=== PATIENT | female | born 1950 | race Caucasian/White ===

== ENCOUNTER 2023-07-18 06:21 | Inpatient (IN) | payer MEDICARE, SELFPAY ==
--- NOTE | 2023-05-31 10:46 | CM ---
Addendum entered by Erika Young 07/13/23 10:00:
Spoke again with patient. She confirmed information below. She continues to state that she will need VN services. SHe will have support from her daughter and friend but no one will stay with her.
Addendum entered by Erika Young 07/13/23 09:13:
Surgery date has been changed to 07/18/23.
Original Note:
Patient is scheduled for an elective L TKR on 07/04/23. Spoke with patient prior to surgery via telephone. Introduced role of Orthopedic Navigator. Patient reports that she lives alone in a one floor apartment. Building is elevator accessible with no
steps to enter. She currently functions independently. She has a cane, rolling walker, rollator (which she occasionally uses for longer distances) and a shower seat. She has had VN services. PCP is Hang Horowitz.
Discussed orthopedic program and post surgical plans. Reviewed anticipated length of stay and that goal is for her to return home at discharge. Also reviewed outpatient PT. Patient is in agreement with tentative plan and states that her daughter
lives close by and will stay with her initially. She will need VN services.
Patient will complete online education.
Plan: Orthopedic Navigator will remain available to assist with the care of patient and will reassess discharge needs after surgery.
[2023-06-15 13:13] VITALS: BMI 35.3
[2023-06-15 14:01] LABS: Hematocrit 40.3 % (37.0-47.0); Hemoglobin 14.2 g/dL (12.0-16.0); Mean Corp Hgb Conc. 35.2 g/dL (33.0-37.0); Mean Corpuscular Hgb 29.8 pg (27.0-31.0); Mean Corpuscular Volume 84.7 fL (81.0-99.0); Mean Platelet Volume 8.5 fL (7.4-10.4); Platelet Count 261 10^3/uL (130-400); Red Blood Cell Count 4.76 10^6/uL (4.20-5.40); White Blood Cell Count 5.8 10^3/uL (4.8-10.8)
[2023-06-15 14:04] LABS: ALT (SGPT) 29 U/L (0-35); AST (SGOT) 35 U/L (14-36); Albumin 4.2 g/dl (3.5-5.0); Alkaline Phosphatase 85 U/L (38-126); Blood Urea Nitrogen 11 mg/dl (7-17); Calcium 9.5 mg/dl (8.4-10.2); Carbon Dioxide 30 mmol/L (22-30); Chloride 96 mmol/L (98-107); Estimated Creatinine Clearance 59 ml/min; Glucose 97 mg/dl (70-99); Potassium 3.7 mmol/L (3.5-5.1); Sodium 136 mmol/L (135-145); Total Bilirubin 0.9 mg/dl (0.2-1.3); Total Protein 7.8 g/dl (6.3-8.2); eGFR > 60.00
[2023-06-15 15:35] VITALS: BMI 35.3
[2023-06-16 09:24] LABS: Glycohemoglobin (HgbA1c) 5.8 % (4.0-5.6)
--- NOTE | 2023-07-14 11:56 | HPS.HSE ---
Family Physician
-
Family Physician: Hang Horowitz
Chief Complaint
-
�Advanced osteoarthritis of the left knee.
�
History of Present Illness
73 yo female w/end-stage arthritis of the left knee that has failed conservative
treatment measures. She has attempted multiple modalities including
intra-articular injection, weight loss, self-directed exercise,
physical therapy, activity modification, ice and heat. Imaging
performed revealed severe [id number] joint space narrowing with
periarticular spur formation. She was determined to be in need of a
left total knee arthroplasty. She currently denies chest pain,
shortness of breath, fever, chills, nausea, vomiting, or diarrhea.
�
Medical History
Past Medical History
Past Medical History: Reports Other (see below)
Additional Past Medical History:
1. Osteoarthritis.
2. Obesity, BMI 35.3.
3. SVT.
4. Hypertension.
5. Hyperlipidemia.
6. Abnormal EKG.
7. Gastric and colonic polyps with history of iron-deficiency
anemia.
8. History of MRSA.
9. Irritable bowel constipation.
10. Obstructive sleep apnea, CPAP.
11. COPD.
12. Asthma, moderate-persistent.
13. Gastroesophageal reflux disease.
14. Insomnia.
15. Spinal stenosis with degenerative disc disease.
16. Depression, anxiety.
�
Past Surgical History: Reports Other (see below)
Additional Past Surgical History:
Spine surgery x10, right total knee arthroplasty with subsequent revision x2, cervical fusion,
bladder sling, hip surgery, carpal tunnel release, cataract,
hysterectomy, nasal polypectomy, septoplasty, nasal.
�
Social History
Tobacco: Former Smoker
Alcohol: Daily (2)
Family History
Family History: Not pertinent
Allergies / Home Medications
Allergies reflects when Allergies were last updated in [email or web address].
Home Medications with original date entered in [email or web address]
Allergy/Medication List:
HOME MEDICATIONS:�
1. Clonazepam 0.5 mg b.i.d.
2. Escitalopram 10 mg daily.
3. Nexium 40 mg daily.
4. Zetia 10 mg at bedtime.
5. Ellipta one inhalation daily.
6. Levocetirizine 5 mg daily.
7. Amitiza 8 mcg b.i.d.
8. Singulair 10 mg daily.
9. Simvastatin 40 mg at bedtime.
10. Tizanidine 4 mg at bedtime.
11. Potassium chloride 10 mEq daily.
�
ALLERGY:� To adhesive, barium, Cipro, coffee, corn, mold, ragweed,
sulfa, antibiotics.
Review of Systems
-
A 12 point ROS was completed and negative except as noted: Yes
Physical Exam
Physical Exam
General: Well Developed and Well Nourished
HEENT: NormoCephalic and Anicteric
Respiratory: Clear
Cardiac: S1/S2 and Regular Rhythm
GI: Soft, Non Tender and Normal Bowel Sounds
Skin: Warm and Dry
Neuro: AO x 3, Cranial Nerves Intact and Other (Left knee, range of motion 12-110, medial and lateral joint line tenderness with patellar grind, small effusion, slight instability to varus stress.)
Laboratory Results
-
06/15/23 12:57
06/15/23 12:57
Laboratory Results
Total Bilirubin 0.9 mg/dl (0.2-1.3) 06/15/23 12:57
AST 35 U/L (14-36) 06/15/23 12:57
ALT 29 U/L (0-35) 06/15/23 12:57
Alkaline Phosphatase 85 U/L (38-126) 06/15/23 12:57
Impression/Plan
-
DIAGNOSTIC STUDIES:� 06/15/2023
�
EKG:� Normal sinus rhythm, possible inferior infarct.
(Prior Nuclear test and evaluation included.)
�
LABORATORY RESULTS:� White blood count 5.8, hemoglobin 14.2,
platelets 261. Sodium 136, potassium 3.7, BUN 11, creatinine 0.9,
AST 35, ALT 29.
�
Hemoglobin A1c 5.8.
�
MRSA screen negative.
�
CLEARANCES:�
1. Primary medical, Dr. Hang Horowitz, , cleared.
2. Dental waived.
�
IMPRESSION/PLAN:�
1. Advanced end-stage arthritis of the left knee scheduled for left
total knee arthroplasty with Dr. Roderick Herring. Benefits and
risks have been discussed with the patient. These risks are
understood, and she wishes to proceed.
2. Deep vein thrombosis prophylaxis, aspirin with advised venous
compression device.
�
CONTACT INFORMATION:�
1. Patient phone, .
2. Postoperative contact, daughter, Ev, .
[2023-07-18] VITALS (22 sets, daily range): BP systolic 110–197; BP diastolic 51–169; PULSE 90; O2SAT 98; BMI 35.3
[2023-07-18] MEDS: TYLENOL 650 MG PO ×3 (10:02→20:03)
[2023-07-18] MEDS: NORMOSOL-R 1000 IV ×3 (10:03→16:07)
[2023-07-18] MEDS: VANCOCIN 300 MG IV (10:13)
[2023-07-18] MEDS: VANCOCIN 300 ML IV (10:13)
[2023-07-18] MEDS: BACTROBAN NASAL 1 GRAM NASAL (10:22)
[2023-07-18] MEDS: DILAUDID 0.5 MG IV ×3 (14:19→14:55)
[2023-07-18] MEDS: ROXICODONE 5 MG PO (14:39)
--- NOTE | 2023-07-18 18:30 | PTCARENOTE ---
pt admitted to room 2102 from the PACU at 1820. pt alert and awake. hoarse voice quality. denies discomfort. Assessment as documented. O2 2L NC maintained-pox 95%. Left knee w/michael wrap over surgical dressing intact. no drainage noted. ice
pack in use. B/L LE neurovascular check WNL.
+ pedal pulses noted. oriented to room call ortiz, bed controls and plan of care with verbalized understanding. telemetry placed and reading SR 70's. pt currently eating dinner-due to void. will observe.
[2023-07-18] MEDS: LEXAPRO 10 MG PO (18:43)
[2023-07-18] MEDS: ANCEF 5 IV (18:43)
[2023-07-18] MEDS: LIPITOR 20 MG PO (18:43)
[2023-07-18] MEDS: SINGULAIR 10 MG PO (18:43)
[2023-07-18] MEDS: DECADRON 4 MG PO (20:02)
[2023-07-18] MEDS: BACTROBAN 2% OINTMENT 1 APPLIC NASAL (20:02)
[2023-07-18] MEDS: NEURONTIN 300 MG PO (20:02)
[2023-07-18] MEDS: KLONOPIN 0.5 MG PO (20:02)
[2023-07-18] MEDS: ULTRAM 50 MG PO (20:03)
[2023-07-18] MEDS: SENOKOT PO (20:13)
[2023-07-18] MEDS: ProAIR HFA INHALER 2 PUFF INH (20:26)
[2023-07-18] MEDS: ZETIA 10 MG PO (22:14)
[2023-07-18] MEDS: TORADOL 15 MG IV (22:14)
[2023-07-18] MEDS: PROTONIX 40 MG PO (22:14)
[2023-07-18] MEDS: ZANAFLEX 4 MG PO (22:14)
[2023-07-18] MEDS: ROXICODONE 10 MG PO (22:17)
[2023-07-19] MEDS: TYLENOL PO (01:05)
[2023-07-19] MEDS: TYLENOL 650 MG PO ×3 (03:02→11:51)
[2023-07-19] MEDS: ANCEF 5 IV (03:03)
[2023-07-19] MEDS: FLUSH (NSS) 2 FLUSH IV (03:03)
[2023-07-19 03:28] VITALS: BP 100/59
[2023-07-19 07:37] VITALS: BP 125/64
[2023-07-19] MEDS: BACTROBAN 2% OINTMENT 1 APPLIC NASAL (08:04)
[2023-07-19] MEDS: KLONOPIN PO (08:11)
[2023-07-19] MEDS: ProAIR HFA INHALER 2 PUFF INH (08:11)
[2023-07-19] MEDS: VISBIOME 1 CAP PO (08:13)
[2023-07-19] MEDS: SINGULAIR 10 MG PO (08:13)
[2023-07-19] MEDS: SENOKOT 17.1999999999999993 MG PO (08:13)
[2023-07-19] MEDS: LEXAPRO 10 MG PO (08:13)
[2023-07-19] MEDS: NEURONTIN 300 MG PO (08:13)
[2023-07-19] MEDS: ULTRAM 50 MG PO (08:14)
[2023-07-19] MEDS: ZYRTEC 10 MG PO (08:14)
[2023-07-19] MEDS: DECADRON 4 MG PO (08:14)
[2023-07-19] MEDS: MOBIC 15 MG PO (08:14)
--- NOTE | 2023-07-19 08:54 | CM ---
Addendum entered by Erika Young 07/19/23 11:40:
Patient did well in therapy. She has no concerns about going home and will update her family.
Original Note:
Reviewed chart and held rounds with PT, OT and nursing. Patient admitted as planned for elective L TKR. Met with patient at bedside. Confirmed information previously obtained for assessment. Also discussed discharge plans. The plan is for patient to
return home at discharge. She will have support from her daughter and neighbors but no on will stay with her. Reviewed VN services including start of care (tentatively 07/19), services to be ordered (PT, SN) and frequency/duration of services.
Options list provided and PAC data reviewed. Patient selects VN.
Patient has a rolling walker, raised toilet seat with rails and a cane at home.
VN referral was completed and sent to [facility] through [employer] with request for start of care on 07/19. Confirmation received of their ability to accept case. expense clerk to fax discharge instructions to [facility] when complete.
Patient will use [facility] pharmacy for discharge prescriptions.
--- NOTE | 2023-07-19 10:09 | W.PN.ORTHO ---
Today's Communication / Plan
-
d/c
Assessment
.
Distal Motor Intact: Yes
Dressing:
Clean, dry and intact.
Assessment:
Hx gastric and colonic polyps w/ hx LESLY--increase home Nexium to bid and decrease aspirin ppx to 81mg bid--venous compression device advised-discussed with patient
IBS w/ constipation-add MOM to bowel regimen
Plan
.
Surgery / Date: Tiffanie Herring 07/18/23
DVT Prophylaxis: Aspirin (81mg bid)
Activity:
Out of bed.
PT/OT
Discharge Plan: Home w/ VN
Subjective
.
.:
Patient resting comfortably.
Vital Signs and Labs
.
Vital Signs and Labs:
Lab Results
06/15/23 12:57
06/15/23 12:57
Temp Pulse Resp BP Pulse Ox
98.0 F 90 14 125/64 97
07/19/23 07:37 07/19/23 08:15 07/19/23 08:15 07/19/23 07:37 07/19/23 08:15
Non-invasive Hgb result: 9.8
Physical Exam
-
HEENT: No pallor, cyanosis, or jaundice. Throat clear.
NECK: Supple. No JVD.
RESPIRATORY: Lungs clear to auscultation.
CVS: S1, S2 normal. RRR.� No murmur, rub or gallop.
ABDOMEN: Soft, non-tender. No distension. BS+/normal.
EXTREMITIES: strength equal, no calf pain with palpation
REPAIRER SHOE STICKS: AOx3. No focal deficits. keno dealer grossly intact
[2023-07-19 10:23] LABS: Hemoglobin 11.4 g/dL (12.0-16.0)
--- NOTE | 2023-07-19 10:33 | W.DS.TRANS ---
DC Summary - Behavioral Therapist
-
Discharge Instructions:
Discharge Diagnosis/Procedures L TKA Dr. Herring 07/18/23
Diet As tolerated
Activity With Walker
Driving Restrictions No driving
Bathing Restrictions OK to Shower
Other Services VN,PT
Instructions:
Stand-Alone Forms: Total Hip/Knee Replacement D/C
Changes to Home Medications: Yes
Discharge Medications:
DC Medications w/original date entered in [employer]
clonazepam 0.5 mg tablet 0.5 mg PO BID Mental Health/Anxiety 04/27/21
escitalopram oxalate 10 mg tablet 10 mg PO DAILY Mental Health/Anxiety 04/27/21
ezetimibe 10 mg tablet 10 mg PO HS High cholesterol 04/27/21
levocetirizine 5 mg tablet 5 mg PO DAILY Allergies 04/27/21
losartan 100 mg-hydrochlorothiazide 25 mg tablet 1 tab PO DAILY Blood pressure 04/27/21
lubiprostone 8 mcg capsule (Amitiza) 8 mcg PO BID Constipation 04/27/21
montelukast 10 mg tablet 10 mg PO DAILY Allergies 04/27/21
potassium chloride 10 mEq tablet,extended release(part/cryst) 20 meq PO DAILY Electrolyte Repletion 04/27/21
simvastatin 40 mg tablet 40 mg PO QPM High cholesterol 04/27/21
Lactobacillus rhamnosus GG 10 billion cell-inulin 200 mg capsule ([facility]) 1 cap PO DAILY Gastrointestinal Issue 06/13/23
albuterol 90 mcg/actuation aerosol inhaler 90 mcg inhalation BID SOB 07/18/23
acetaminophen 500 mg tablet 500 mg PO QID Pain #0 tabs 07/19/23
aspirin 81 mg tablet,delayed release 81 mg PO BID blood clot prevention #60 tabs 07/19/23
dexamethasone 4 mg tablet 4 mg PO BID inflammation #6 tabs 07/19/23
docusate sodium 100 mg capsule (Colace) 100 mg PO BID stool softner #1 cap 07/19/23
esomeprazole magnesium 40 mg capsule,delayed release (Nexium) 40 mg PO BID GI prophylaxis #60 caps 07/19/23
ferrous sulfate 325 mg (65 mg iron) tablet 325 mg PO DAILY #30 tabs 07/19/23
gabapentin 300 mg capsule 300 mg PO HS sleep/pain #10 caps 07/19/23
magnesium hydroxide 400 mg/5 mL oral suspension (Milk of Magnesia) 30 ml PO HS PRN Constipation #1 mL 07/19/23
oxycodone 5 mg tablet 5 - 10 mg PO Q6HPRN PRN 1 tab moderate-2 tabs severe pain #30 tabs 07/19/23
sennosides 8.6 mg tablet (Senokot) 17.2 mg PO BID laxative #2 tabs 07/19/23
tizanidine 4 mg capsule 4 mg PO Q6HPRN PRN muscle spasm #0 caps 07/19/23
tramadol 50 mg tablet 50 - 100 mg PO BID ongoing therapy #14 tabs 07/19/23
Home Medication Changes
dexamethasone 4 mg tablet 4 mg PO BID inflammation #6 tabs 07/19/23
esomeprazole magnesium 40 mg capsule,delayed release (Nexium) 40 mg PO BID GI prophylaxis #60 caps 07/19/23
ferrous sulfate 325 mg (65 mg iron) tablet 325 mg PO DAILY #30 tabs 07/19/23
gabapentin 300 mg capsule 300 mg PO HS sleep/pain #10 caps 07/19/23
magnesium hydroxide 400 mg/5 mL oral suspension (Milk of Magnesia) 30 ml PO HS PRN Constipation #1 mL 07/19/23
oxycodone 5 mg tablet 5 - 10 mg PO Q6HPRN PRN 1 tab moderate-2 tabs severe pain #30 tabs 07/19/23
sennosides 8.6 mg tablet (Senokot) 17.2 mg PO BID laxative #2 tabs 07/19/23
tramadol 50 mg tablet 50 - 100 mg PO BID ongoing therapy #14 tabs 07/19/23
Pending Results: Yes
Additional Pending Results:
HGB
[2023-07-19 10:45] LABS: Hepatitis C Antibody Negative (Negative)
[2023-07-19] MEDS: TORADOL 15 MG IV (10:46)
[2023-07-19 10:56] LABS: Hemoglobin 10.3 g/dL (12.0-16.0)
[2023-07-19 11:23] VITALS: BP 120/50; BP 91/44; PULSE 60; O2SAT 97
[2023-07-19 11:24] VITALS: BP 120/50
[2023-07-19 14:16] VITALS: BP 120/50; O2SAT 96
== END 2023-07-19 14:36 | disposition home health service (06) | DRG 470 ==
LOC: 2 SOUTH 06:21
PROVIDERS: Physician Assistant Medical; ADMITTING PHYSICIAN Specialist; FAMILY PHYSICIAN Family Medicine
PROC: 5A09357 Assistance with Respiratory Ventilation, Less than 24 Consecutive Hours, Continuous Positive Airway Pressure (ICD-10-PCS; 2023-07-18)
PROC: 0SRD0J9 Replacement of Left Knee Joint with Synthetic Substitute, Cemented, Open Approach (ICD-10-PCS; 2023-07-18)
DX: M17.12 Unilateral primary osteoarthritis, left knee (principal); I47.10 Supraventricular tachycardia, unspecified; E66.9 Obesity, unspecified; I10 Essential (primary) hypertension; E78.5 Hyperlipidemia, unspecified; D50.9 Iron deficiency anemia, unspecified; G47.33 Obstructive sleep apnea (adult) (pediatric); J44.89 Other specified chronic obstructive pulmonary disease; K21.9 Gastro-esophageal reflux disease without esophagitis; G47.00 Insomnia, unspecified; M48.00 Spinal stenosis, site unspecified; F32.A Depression, unspecified; K58.1 Irritable bowel syndrome with constipation; F41.9 Anxiety disorder, unspecified; Z68.35 Body mass index [BMI] 35.0-35.9, adult; Z86.14 Personal history of Methicillin resistant Staphylococcus aureus infection; Z86.010 Personal history of colon polyps; Z77.22 Contact with and (suspected) exposure to environmental tobacco smoke (acute) (chronic); Z87.891 Personal history of nicotine dependence; Z96.651 Presence of right artificial knee joint
CPT/HCPCS: 36415; 73560; 80053; 83036; 85018; 85027; 86803; 87070; 93005; 94640; 97110; 97116; 97162; 97166; C1713; C1776

== ENCOUNTER 2023-07-20 15:13 | Emergency (ER) | payer MEDICARE, SELFPAY ==
[2023-07-20 15:28] VITALS: BP 95/58
--- NOTE | 2023-07-20 16:04 | ED.GENMED ---
History of Present Illness
General
Chief Complaint: Musculo-Skeletal Complaint
Time Seen by Provider: 07/20/23 16:01
Travel History
Have you had any contact with someone who has COVID-19?: No
Do you have any symptoms of coronavirus? Fever > 100 degrees, chills, cough, shortness of breath, sore throat, loss of taste or smell, muscle aches, or headache?: No
History of Present Illness
History of Present Illness:
HPI: Patient presents due to a fall. She recently had left knee surgery [address] Herring. She was sitting on an old wooden chair today and the legs broke and she fell to the ground. She struck the left knee on the chair and also struck
the back of her head on the chair as she was falling. She has no headache or neck pain. She states that she has chronic back pain from prior spine surgery.
EXAM:
GENERAL: Well appearing in no distress
HEENT: Moist oral mucosa
NEUROLOGIC: Excellent strength all extremities, no coordination deficits
PSYCHIATRIC: Appropriate mental status, normal insight and judgement
EXTREMITIES: Surgical dressing noted to the anterior left knee, there is mildly decreased active range of motion at the left knee into flexion and extension, there is ecchymosis noted to the medial aspect of the left knee
SKIN: No rash, no lesions
TIME OF INITIAL ENCOUNTER: 4:20 PM: I initially evaluated patient
NUMBER AND COMPLEXITY OF PROBLEMS ADDRESSED AT THE ENCOUNTER
� Chronic conditions affecting care: Multiple spine surgeries, recent left knee surgery, diverticular disease, anxiety/depression
� Acute Exacerbation and/or Progression of Chronic Illness: This is an acute problem
� Differential Diagnosis includes: Periprosthetic fracture, contusion, postoperative pain
AMOUNT AND/OR COMPLEXITY OF DATA TO BE REVIEWED AND ANALYZED
� I performed an independent evaluation of and my interpretation is:
EKG:
CT:
X-rays: X-ray shows normal postoperative state with no sign of periprosthetic fracture
Laboratory Studies:
Other:
� Review of other/old records: Reviewed recent OR notes from 2 days ago
� Clinical information was obtained by an independent historian:
� Prescriptions/Medications Considered but not given:
� Further testing considered but not performed:
RISK OF COMPLICATIONS AND/OR MORBIDITY OR MORTALITY OF PATIENT MANAGEMENT
� Social determinants of health affecting care: Lives at home
� Discussion with other providers: I notified Dr. Tsai and then discussed with Dr. Herring
� Escalation of care including admission/observation vs risk of discharge considered: The patient is rather debilitated and will require EMS transportation back home
Past History
Past History
ED Past Medical History: Asthma, Psychiatric ( anxiety) and Other (Chronic low back pain, diverticulosis, lower GI bleed, irritable bowel syndrome, UTI, stress incontinence, DJD, osteoporosis)
ED Past Surgical History: Gynecological (Pelvic sling) and Orthopedic (Spinal surgery June 2019, fusion of hip joint/pelvic joint December 2020 and again March 2021)
Social History
Tobacco: Non-smoker
Alcohol: None
Personal:
Living: with family
Employment: Retired
Family History
Family History: Unable to obtain
Phy Exam
Physical Exam
Physical Exam:
See HPI
Course
Orders/Labs/Results
Orders:
Orders
07/20/23 16:24
CR Knee - Left 4 Or More View* Urgent
Comment:
Reason For Exam: trauma recent post op
07/20/23 16:27
Oxycodone/Acetaminophen [Percocet 5/325] 1 tablet PO NOW STA
Vital Signs
Initial and Last Documented VS:
Initial Vital Signs
Temp Pulse Resp BP Pulse Ox
98.7 F 63 18 95/58 98
07/20/23 15:28 07/20/23 15:28 07/20/23 15:28 07/20/23 15:28 07/20/23 15:28
Last Documented Vital Signs
Temp Pulse Resp BP Pulse Ox
98.7 F 60 18 119/58 98
07/20/23 15:28 07/20/23 17:37 07/20/23 15:28 07/20/23 17:37 07/20/23 15:28
*Critical Care Note
Total Time (30-74mins, 75-104mins- exclusive of procedures): Not Applicable
ED Attending Note
-
Portions of this chart may have been created with voice recognition software.� Occasional wrong word or��sound alike� substitutions may have occurred due to the inherent limitations of voice recognition software.
Discharge Plan
Departure
Patient Disposition: Home (Routine Discharge)
Date of Disposition: 07/20/23
Time of Disposition: 18:05
Patient with high blood pressure during this ER visit?: Yes
Discharge Problem:
Acute knee pain
Prescriptions:
No Action
clonazepam 0.5 MG tablet
0.5 mg PO BID
simvastatin 40 MG tablet
40 mg PO QPM
losartan-hydrochlorothiazide 1 TAB tablet
1 tab PO DAILY
montelukast 10 MG tablet
10 mg PO DAILY
escitalopram oxalate 10 MG tablet
10 mg PO DAILY
ezetimibe 10 MG tablet
10 mg PO HS
levocetirizine 5 MG tablet
5 mg PO DAILY
lubiprostone [Amitiza] 8 MCG capsule
8 mcg PO BID
potassium chloride 10 MEQ tablet,ER particles/crystals
20 meq PO DAILY
[facility] 10 billion cell -200 mg Capsule
1 cap PO DAILY
albuterol 90 mcg/actuation Aerosol
90 mcg INHALATION BID
Patient Comments:
2 puffs albuterol BID
docusate sodium [Colace] 100 mg capsule
100 mg PO BID Qty: 1 0RF
sennosides [Senokot] 8.6 mg tablet
17.2 mg PO BID Qty: 2 0RF
tramadol 50 mg tablet
50 - 100 mg PO BID Qty: 14 0RF
Rx Instructions:
Dx Orthopedic surgery
post-op
magnesium hydroxide [Milk of Magnesia] 400 mg/5 mL suspension
30 ml PO HS PRN (Reason: Constipation) Qty: 1 0RF
dexamethasone 4 mg tablet
4 mg PO BID Qty: 6 0RF
Rx Instructions:
take with food
post-op use only
gabapentin 300 mg capsule
300 mg PO HS Qty: 10 0RF
oxycodone 5 mg tablet
5 - 10 mg PO Q6HPRN PRN (Reason: 1 tab moderate-2 tabs severe pain) Qty: 30 0RF
Rx Instructions:
Dx surgery
ongoing therapy
Post-op use
esomeprazole magnesium [Nexium] 40 mg capsule,delayed release(DR/EC)
40 mg PO BID Qty: 60 0RF
ferrous sulfate 325 mg (65 mg iron) tablet
325 mg PO DAILY Qty: 30 0RF
Rx Instructions:
take with 2 Senakot x 1 month--OTC
aspirin 81 mg tablet,delayed release (DR/EC)
81 mg PO BID Qty: 60 0RF
Rx Instructions:
OTC--TAKE WITH FOOD
acetaminophen 500 mg Tablet
500 mg PO QID Qty: 0 0RF
tizanidine 4 mg Capsule
4 mg PO Q6HPRN PRN (Reason: muscle spasm) Qty: 0 0RF
Referrals:
Hang Horowitz, DO [Family Provider] -
Activity Restrictions/Additional Instructions:
X-ray shows no sign of fracture. I notified Dr. Khoury's partner, Dr. Tsai. Return here if worse.
Interventions
Interventions:
*Risk Screen - Suicide Last Done: 07/20/23 15:28
*General Assessment Last Done: 07/20/23 15:28
*Neglect/Abuse Screening Last Done: 07/20/23 15:28
*ED COVID-19 Vaccine History Last Done: 07/20/23 15:44
ED-Musculoskeletal Assessment Last Done: 07/20/23 15:44
[2023-07-20] MEDS: PERCOCET 5/325 1 TABLET PO (16:32)
[2023-07-20 17:37] VITALS: BP 119/58
[2023-07-20 19:53] VITALS: BP 127/56
== END 2023-07-20 19:54 | disposition home or self-care (01) ==
LOC: EMR 15:13
PROVIDERS: EMERGENCY PHYSICIAN Emergency Medicine; FAMILY PHYSICIAN Family Medicine
DX: M25.562 Pain in left knee (principal); W07.XXXA Fall from chair, initial encounter; I10 Essential (primary) hypertension
CPT/HCPCS: 99283; 73564